=== PATIENT | female | born 1940 | race Caucasian/White ===

== ENCOUNTER 2018-05-11 08:00 | Outpatient (CLI) | payer MEDICARE ==
[2018-05-11 17:25] LABS: BASOPHILS % (AUTO) 0.6 %; EOSINOPHILS % (AUTO) 0.5 %; HGB - HEMOGLOBIN 11.2 g/dL (12.0-16.0); LYMPHOCYTES # (AUTO) 2.3 10^3/uL (1.5-3.5); LYMPHOCYTES % (AUTO) 26.8 %; MEAN CORPUSCULAR HEMOGLOBIN 28.6 pg (27.0-31.0); MEAN CORPUSCULAR HGB CONC 33.2 g/dL (32.0-36.0); MEAN CORPUSCULAR VOLUME 86.1 fL (81.0-99.0); MEAN PLATELET VOLUME 7.1 fL (7.9-10.8); MONOCYTES # (AUTO) 0.5 10^3/uL (0.0-1.0); MONOCYTES % (AUTO) 5.2 %; NEUTROPHILS # (AUTO) 5.8 10^3/uL (1.5-6.6); NEUTROPHILS % (AUTO) 66.9 %; PLT - PLATELET COUNT 386 10^3/uL (130-450); RED BLOOD COUNT 3.92 10^6/uL (4.20-5.40); RED CELL DISTRIBUTION WIDTH 16.7 % (12.0-15.0); WHITE BLOOD COUNT 8.7 x10^3/uL (4.8-10.8)
[2018-05-11 18:15] LABS: % IRON SATURATION 15 % (20-50); IRON 42 ug/dL (28-170); TOTAL IRON BINDING CAPACITY 277 ug/dL (250-450); TRANSFERRIN 198 mg/dL (192-382)
== END 2018-05-11 08:01 | disposition home or self-care (01) ==
LOC: LAB.F 08:00
PROVIDERS: ATTEND Internal Medicine
DX: D64.9 Anemia, unspecified (principal)
CPT/HCPCS: 36415; 82728; 83540; 84466; 85025

== ENCOUNTER 2019-10-26 13:42 | Outpatient (CLI) | payer MEDICARE, BC ==
--- NOTE | 2019-10-28 00:28 | XRAY Report ---
Reason: PAIN, SWELLING LT KNEE NON TRAUMA Procedure Date: 10/26/2019 Accession Number: [id number] / [id number] Procedure: XRS - Knee 3 View LT CPT Code: Final Report FULL RESULT: EXAM: LEFT KNEE RADIOGRAPHY EXAM DATE: 10/26/2019 02:03 PM. CLINICAL HISTORY: PAIN, SWELLING LT KNEE NON TRAUMA. COMPARISON: None. TECHNIQUE: 3 views. FINDINGS: Bones: Normal. No fractures or bone lesions. Joints: Mild osteoarthritis. Moderate effusion. Soft Tissues: Soft tissue swelling. No radiopaque foreign body. IMPRESSION: Mild osteoarthritis. Moderate joint effusion, with soft tissue swelling. No evidence of fracture. [facility]
== END 2019-10-26 13:43 | disposition home or self-care (01) ==
LOC: DI.S 13:42
PROVIDERS: ATTEND Family Medicine
DX: M17.12 Unilateral primary osteoarthritis, left knee (principal)